=== PATIENT | female | born 1975 | race Caucasian/White ===

== ENCOUNTER 2019-05-30 12:08 | Emergency (ER) | payer MEDICAID ==
[~2019-05-30] VITALS: Ht 157.5 cm; Wt 49.4 kg
[~2019-05-30 12:08] MED LIST: FLUO20CA22 PO; MECL12.574 PO
[2019-05-30 12:25] VITALS: BP 116/71; PULSE 85; RESP 18; Ht 157.5 cm; Wt 49.4 kg
== END 2019-05-30 13:25 | disposition home or self-care (01) ==
LOC: FTE 12:08
DX: F32.9 Major depressive disorder, single episode, unspecified (principal)
CPT/HCPCS: 99283